=== PATIENT | female | born 1990 | race Caucasian/White ===

== ENCOUNTER 2020-04-16 20:48 | Emergency (ER) | payer OTHER, SELFPAY ==
--- NOTE | ~2020-04-16 | CT_ITS ---
EXAMINATION: CT soft tissue neck w con DATE: 04/17/2020 00:05 INDICATION: Largest created sore of the left posterior pharynx TECHNIQUE: Computed tomography (CT) of the neck was performed with 75 cc of Omnipaque 350 intravenous contrast. The dose-length product (DLP) was 520.09 mGy-cm. Automated exposure control and iterative reconstruction technique were employed. COMPARISON: None FINDINGS: There is mild enlargement of the palatine tonsils. No abscess or phlegmon is identified. Th ere is no lymphadenopathy. The vascular structures appear normal. IMPRESSION: 1. Mild enlargement of the palatine tonsils which could reflect tonsillitis. No abscess. Reviewed, dictated and finalized at location A.
--- NOTE | ~2020-04-16 | XR_ITS ---
XR chest 2V DATE: 04/16/2020 23:51 INDICATION: Chest pain TECHNIQUE: 2 views COMPARISON: None FINDINGS: Normal heart size. No hilar or mediastinal enlargement. No pulmonary infiltrate or consol idation, pulmonary vascular congestion or pleural effusion or pneumothorax. Mild thoracic scoliosis. IMPRESSION: No active cardiopulmonary disease Reviewed, dictated and finalized at location A.
--- NOTE | ~2020-04-16 | CT_ITS ---
EXAMINATION: CT brain wo con DATE: 04/17/2020 00:04 INDICATION: Headache TECHNIQUE: Computed tomography (CT) of the head was performed without intravenous contrast. The mA wa s adjusted according to patient size. Iterative reconstruction technique was employed. Exam dose: 60 5.33 mGy-cm total exam DLP. COMPARISON: 06/06/2011 CT brain FINDINGS: No intracranial mass lesion or hemorrhage or cerebrovascular accident is evident. No midlin e shift or mass effects. Normal ventricular size. No subdural or epidural hematoma. No orbital mass l esion. The mastoid air cells and included paranasal sinuses are unremarkable. No fracture or bone destruction of the cranial vault. IMPRESSION: No significant intracranial abnormality Reviewed, dictated and finalized at [facility]. Reviewed, dictated and finalized at location A.
[2020-04-16 20:50] VITALS: BP 133/73; PULSE 85; RESP 16; TEMP 36.3; O2SAT 99
--- NOTE | 2020-04-16 22:15 | ED.HA ---
HPI - Headache General Chief Complaint: Headache Stated Complaint: mouth infection Time Seen by Provider: 04/16/20 22:15 Source: patient Mode of arrival: ambulatory Limitations: no limitations History of Present Illness HPI Narrative: Patient is a 29-year-old female who presents for evaluation of intermittent headache pain. Patient has reported intermittent headache over the past several weeks. Occasionally awakens her from sleep. Described as a burning sensation over the right side of her face. No associated eye tearing or redness. No recent head trauma. Patient denies vision changes, nausea or vomiting. She does have some sensitivity to light. No difficulty with ambulation. Patient reports that she attributed her symptoms to a sore in the back of her mouth which is been present for 3 years. Patient states at times the sore can bleed and cause quite a bit of pain. She has never had a dentist or any physician look at this. Patient denies history of cancer. 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 Related Data Allergies Allergy/AdvReac Type Severity Reaction Status Date / Time No Known Allergies Allergy Verified 02/19/15 10:38 Review of Systems Review of Systems: Narrative: CONSTITUTIONAL: Denies fever, chills, or sweats. EYES: Denies visual changes, redness, or discharge. ENT: Denies rhinorrhea, congestion, sore throat, or otalgia. CARDIOVASCULAR: Reports intermittent chest pain over the past several weeks, denies palpitations or edema RESPIRATORY: Denies cough or dyspnea. GASTROINTESTINAL: Denies abdominal pain, nausea, vomiting, or diarrhea. GENITOURINARY: Denies dysuria or hematuria. SKIN: Denies rash or itching. MUSCULOSKELETAL: Denies back pain, joint pain, or myalgia. NEUROLOGIC: Reports headache without numbness or weakness PSYCHIATRIC: Reports history of anxiety PMFSH Past Medical History Medical History Abscess Surgical History Surgical History (Updated 04/16/20 @ 22:31 by Mary Turpin MD) H/O wisdom tooth extraction Social History Social History (Updated 04/16/20 @ 22:45 by Mary Turpin MD) Smoking status: Former smoker Tobacco type: cigarettes Alcohol intake: never Substance use: former Substance use type: opiates Living arrangements: with family Gender identity (if verbalized by the patient): Female Exam Narrative: Exam Narrative: GENERAL: Awake, alert, conversant HEAD: Normocephalic, atraumatic. EYES: PERRLA and EOMI. ENT: Nares clear, no rhinorrhea or epistaxis. Mucous membranes moist. NECK: Supple. CHEST: No respiratory distress, breathing even and non labored HEART: Regular rate, sinus rhythm ABDOMEN:Non distended, non tender EXTREMITIES: Normal range of motion. No edema. SKIN: Warm, dry, no rash. NEURO:No focal deficits. Alert and oriented x3. EOMs intact without nystagmus. No facial droop/asymmetry noted bilaterally. Grimace intact. Intact sensation in face. Hearing intact bilaterally. Shoulder shrug intact. Strength 5/5 bilateral upper extremities. Strength 5/5 bilateral lower extremities. Reflexes 2+ patellar. Ambulatory with a narrow base, steady gait. Course Vital Signs Vital signs: Vital Signs Temperature 36.3 C L 04/16/20 20:50 Pulse Rate 85 04/16/20 20:50 Respiratory Rate 16 04/16/20 20:50 Blood Pressure 133/73 04/16/20 20:50 Pulse Oximetry 99 04/16/20 20:50 Temperature 36.3 C L 04/16/20 20:50 Pulse Rate 90 04/16/20 23:11 Respiratory Rate 16 04/16/20 23:11 Blood Pressure 107/58 L 04/16/20 23:11 Pulse Oximetry 100 04/16/20 23:11 MDM - Headache MDM Narrative Medical decision making narrative: The patient was evaluated in the emergency department for headache. Patient's headache pain was not sudden or maximal in onset. Patient symptoms are actually quite chronic in nature. Her neurological exam is normal. On exam, patient is quite anxious. On e
--- NOTE | 2020-04-16 22:31 | ECG_ITS ---
Measurements Intervals [place] Rate: 68 P: 31 CA: 185 QRS: 50 QRSD: 91 T: 42 QT: 410 QTc: 437 Interpretive Statements SINUS RHYTHM WITH SINUS ARRHYTHMIA NORMAL ECG Electronically Signed On 04-17-2020 7:11:57 CDT by Sukhi Shirley D.O.
[2020-04-16] MEDS: diphenhydrAMINE HCl INJ 50 MG/ML VIAL 25 MG IV PUSH (22:57)
[2020-04-16] MEDS: METOCLOPRAMIDE HCL INJ 10 MG/2 ML VIAL IV PUSH (22:57)
[2020-04-16] MEDS: SODIUM CHLORIDE 0.9% IV 1,000 ML 999 ML IV CONT (22:57)
[2020-04-16 23:11] VITALS: BP 107/58; PULSE 90; RESP 16; O2SAT 100
[2020-04-16 23:21] LABS: Basophils Percent Auto 0.5 % (0.2-1.2); Eosinophils Absolute Auto 0.4 K/mm3 (0-0.3); Eosinophils Percent Auto 5.5 % (0-4.4); Hematocrit 45.7 % (37.0-47.0); Hemoglobin 15.2 g/dL (12.0-15.0); Immature Granulocyte Absolute 0.02 K/mm3 (0.00-0.031); Immature Granulocyte Percent A 0.3 % (0-0.5); Lymphocytes Absolute Auto 2.67 K/mm3 (0.9-3.2); Mean Corpuscular HGB Conc 33.3 g/dl (32-36); Mean Corpuscular Hemoglobin 28.1 pg (26-34); Mean Corpuscular Volume 84.6 fl (80-100); Mean Platelet Volume 9.9 fl (7.4-10.4); Monocytes Absolute Auto 0.6 K/mm3 (0.1-0.6); Monocytes Percent Auto 7.3 % (2.6-8.5); Neutrophils Absolute Auto 4.1 K/mm3 (1.3-6.7); Neutrophils Percent Auto 52.4 % (45.5-73.1); Platelet Count Result 376 k/mm3 (150-375); Red Cell Distribution Width 13.2 % (11.5-14.5); White Blood Count 7.9 K/mm3 (4.5-10.0)
[2020-04-16] MEDS: MAGNESIUM SULF 2 GM/WATER 50ML 2 GM/50 ML BAG IVPB (23:34)
[2020-04-16 23:36] LABS: INR 0.9
[2020-04-16 23:37] LABS: Partial Thromboplastin Time 29.2 SECONDS (22.3-36.8)
[2020-04-16 23:38] LABS: Blood Urea Nitrogen 4 mg/dL (7-17); Calcium 9.2 mg/dL (8.4-10.2); Carbon Dioxide 30 mmol/L (22-30); Chloride 99 mmol/L (98-107); Estimated Glomerular Filt Rate > 60; Glucose 88 mg/dL (65-105); Sodium 139 mmol/L (137-145)
[2020-04-16 23:50] LABS: Troponin I < 0.012 ng/mL (0.000-0.034)
[2020-04-17 01:06] VITALS: BP 110/62; PULSE 94; RESP 16; O2SAT 98
== END 2020-04-17 01:14 | disposition home or self-care (01) ==
PROVIDERS: Emergency Provider Emergency Medicine
DX: G44.209 Tension-type headache, unspecified, not intractable (principal); K13.70 Unspecified lesions of oral mucosa; Z87.891 Personal history of nicotine dependence
CPT/HCPCS: 36415; 70450; 70491; 71046; 80048; 81025; 84484; 85025; 85610; 85730; 93005; 96361; 96365; 96375; 99284; J0131; J1100; J1200; J2765; J3475; J7030; Q9967

== ENCOUNTER 2020-04-26 14:16 | Outpatient (CLI) | payer OTHER, SELFPAY ==
[2020-04-26 15:03] LABS: INR 0.9; Partial Thromboplastin Time 28.1 SECONDS (22.3-36.8); Prothrombin Time 11.9 Seconds (11.1-14.7)
[2020-04-26 15:04] LABS: Anion Gap 11.9 mmol/L (7-16); Blood Urea Nitrogen 9 mg/dL (7-17); Calcium 9.4 mg/dL (8.4-10.2); Carbon Dioxide 26 mmol/L (22-30); Chloride 102 mmol/L (98-107); Estimated Glomerular Filt Rate > 60; Glucose 93 mg/dL (65-105); Potassium 3.9 mmol/L (3.4-5.0); Sodium 136 mmol/L (137-145)
== END 2020-04-26 14:17 | disposition home or self-care (01) ==
LOC: ANHSURGERY 14:18
PROVIDERS: Anesthesiology; Visit Provider Otolaryngology
DX: Z01.818 Encounter for other preprocedural examination (principal); B19.20 Unspecified viral hepatitis C without hepatic coma
CPT/HCPCS: 36415; 80048; 85610; 85730

== ENCOUNTER 2020-05-03 01:09 | Outpatient (CLI) | payer OTHER, SELFPAY ==
[2020-05-03 18:36] LABS: SARS-CoV-2 RNA PCR Negative
== END 2020-05-03 01:10 | disposition home or self-care (01) ==
LOC: ANHCOVIDDT 01:09
PROVIDERS: Visit Provider Otolaryngology
DX: Z01.812 Encounter for preprocedural laboratory examination (principal); Z20.828 Contact with and (suspected) exposure to other viral communicable diseases
CPT/HCPCS: 87635; C9803; U0003

== ENCOUNTER 2020-05-05 01:44 | Day surgery (SDC) | payer OTHER, SELFPAY ==
[2020-04-22 14:02] VITALS: BMI 29.2
--- NOTE | 2020-05-03 08:12 | PM.HPGS ---
History of Present Illness History of Present Illness Consent: Risks, benefits, and alternatives have been discussed and questions answered. Patient agrees to proceed with procedure. Chief complaint: lesion left buccal mucosa Narrative: Evelyn Erazo is a 29 year old female she has had a several year history of a lesion left buccal mucosa with swelling of the left cheek appears to be an exophytic lesion plan is to biopsy PMFSH Surgical History Surgical History (Updated 04/16/20 @ 22:31 by Mary Turpin MD) H/O wisdom tooth extraction Social History Social History (Updated 04/16/20 @ 22:45 by Mary Turpin MD) Smoking packs per day: 1 Smoking cigarettes per day: 20.0 Years smoked: 15 Smoking pack-years: 15.00 Smoking status: Current every day smoker Tobacco type: cigarettes Alcohol intake: never Substance use: former Substance use type: opiates Gender identity (if verbalized by the patient): Female Spiritual care concerns: No Meds Home Medications and Allergies Home Medications Medication Instructions Recorded Confirmed Type No Home Medications 04/22/20 04/22/20 History Allergies Allergy/AdvReac Type Severity Reaction Status Date / Time No Known Allergies Allergy Verified 04/22/20 14:02 Assessment and Plan Additional Plan exophytic lesion in the left cheek behind the molars needs to be biopsied
[2020-05-05] VITALS (7 sets, daily range): BP systolic 93–118; BP diastolic 60–80; PULSE 88–107; RESP 16–20; TEMP 36.4–36.7; O2SAT 96–100
--- NOTE | 2020-05-05 05:58 | WPDHPUPDATE1 ---
History and Physical Update Update Date/Time: 05/05/20 05:58 History and Physical has been reviewed, including an updated exam of the patient. There are NO changes in the patient's condition. Risks, benefits, and alternatives have been discussed and questions answered. Patient agrees to proceed with procedure.
[2020-05-05] MEDS: LACTATED RINGERS 1,000 ML 30 ML IV CONT (07:52)
--- NOTE | 2020-05-05 08:01 | WPDANESEPPF ---
Anes - Initial Pre Proc Eval Procedure: Operation Date: 05/05/20 08:30 Proposed Procedures p Biopsy Lesion Left Buccal Mucosa - Jessee Perrin MD Date/Time: 05/05/20 08:01 Surgeon: Jessee Perrin MD Pre Op Diagnosis: lesion left buccal mucosa Patient Data Age: 29 Gender: F Height: 5 ft 4 in Weight: 77.11 kg Allergies Allergy/AdvReac Type Severity Reaction Status Date / Time No Known Allergies Allergy Verified 05/05/20 07:55 Home Medications Medication Instructions Recorded Confirmed Type No Home Medications 04/22/20 04/22/20 History Patient hx anesthesia problems: none Family hx anesthesia problems: none PMFSH Past Medical History Medical History (Updated 05/05/20 @ 07:58 by Farshad Ngo MD) Abscess GERD (gastroesophageal reflux disease) Surgical History Surgical History (Updated 04/16/20 @ 22:31 by Mary Turpin MD) H/O wisdom tooth extraction Social History Social History (Updated 04/16/20 @ 22:45 by Mary Turpin MD) Smoking packs per day: 1 Smoking cigarettes per day: 20.0 Years smoked: 15 Smoking pack-years: 15.00 Smoking status: Current every day smoker Tobacco type: cigarettes Alcohol intake: never Substance use: former Substance use type: opiates Gender identity (if verbalized by the patient): Female Spiritual care concerns: No Anes - Eval Final PreProcedure Day of Procedure 05/05/20 08:01 Patient weight: normal Heart: regular rate and rhythm Lungs: clear to auscultation Airway: Mallampati scale class II Neurological: alert and oriented Last oral intake: >/= 8 hours ASA classification: II Emergent: no Anesthetic plan: proceed Anesthesia type and monitoring: general ETT and standard monitoring Informed Consent: The patient's anesthetic plan and its attendant risks and benefits were discussed with the patient/family/POA. Questions were solicited and answers provided to the satisfaction of the patient/family/POA.
[2020-05-05] MEDS: LIDO 1%/EPINEPHRINE 1:100,000 20 ML VIAL INFILTRATE (08:18)
--- NOTE | 2020-05-05 08:38 | PM.PROC ---
Procedure Note - Detailed Date of procedure: 05/05/20 Pre-op diagnosis: lesion left buccal mucosa Exophytic lesion left buccal mucosa Post-op diagnosis: same Procedure performed: biopsy exophytic lesion left buccal mucosa Description of procedure: patient prednisone general anesthesia the area retracted a large exophytic lesion left buccal mucosa was identified and incisionally biopsied Anesthesia: GLMA Surgeon: Jessee Perrin MD Estimated blood loss (mL): 5 Drains: No Packing: No Pathology: yes Complications: No immediate complications Condition: stable Disposition: PACU
--- NOTE | 2020-05-05 09:04 | SUR.PHASEI ---
0849; PT INTO PACU PER STRETCHER. REACTS SLOWLY TO VERBAL STIMULI. 0851; PT AWAKE. CRYING HARD. PT COMFORTED. 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 PT SPIT OUT 4X4 GAUZE WITH SCANT AMT BLOODY DRAINAGE. 0905; PT REMAINS TEARFUL. COMFORTED.
--- NOTE | 2020-05-05 09:18 | SUR.PHASEI ---
PT STILL TEARFUL. NO LONGER CRYING. STATES MODERATE PAIN. FENTANYL GIVEN
--- NOTE | 2020-05-05 09:22 | SUR.PHASEI ---
PT STATES SHE IS READY TO GO TO OUTPT FOR A DRINK AND CRACKERS. PT CALM NOW.
== END 2020-05-05 10:20 | disposition home or self-care (01) ==
PROVIDERS: Visit Provider Otolaryngology
PROC: (CPT 40810; principal; 2020-05-05 08:30)
DX: C06.0 Malignant neoplasm of cheek mucosa (principal); B19.20 Unspecified viral hepatitis C without hepatic coma; F17.210 Nicotine dependence, cigarettes, uncomplicated
CPT/HCPCS: 40810; 88305; 88331; A9270; J1100; J2250; J2405; J2704; J3010; J7120

== ENCOUNTER 2022-03-29 20:31 | Emergency (ER) | payer OTHER, SELFPAY ==
[2022-03-29 20:33] VITALS: BP 127/66; PULSE 77; RESP 18; TEMP 36.4; O2SAT 97
--- NOTE | 2022-03-29 21:01 | ED.GENADULT ---
HPI - General Adult General Chief complaint: Unspecified Stated complaint: want e coli testing Time Seen by Provider: 03/29/22 20:40 History of Present Illness HPI narrative: Patient is a 31-year-old female who presents ER with concern for exposure to E. coli. Patient reports her father recently tested positive for an E. coli infection and Cryptosporidium in his stool. He had been having diarrhea. She reports she had visited a foreign country about 2 months ago. She is unsure how long he is been having the infection/diarrhea. She reports she last saw him 3 to 4 weeks ago. Did spend a week together camping. She did not notice and feeling ill at that time. Patient has had no nausea or vomiting or diarrhea. She has no abdominal pain or cramping. No fevers or chills. She reports her dad want her to get checked because he was told the health department may be following up with her. Related Data Home Medications Medication Instructions Recorded Confirmed No Home Medications 04/22/20 04/22/20 Allergies Allergy/AdvReac Type Severity Reaction Status Date / Time No Known Allergies Allergy Verified 03/29/22 21:00 Review of Systems Review of Systems: All systems reviewed & are unremarkable except as noted in HPI and below Constitutional: Constitutional: Denies chills, Denies fatigue and Denies fever(s) Gastrointestinal: Gastrointestinal: Denies abdominal pain, Denies GI cramping, Denies diarrhea, Denies nausea and Denies vomiting PMFSH Past Medical History Medical History (Updated 03/29/22 @ 21:07 by Robert Pineda MD) Abscess GERD (gastroesophageal reflux disease) Surgical History Surgical History H/O wisdom tooth extraction Social History Social History Smoking packs per day: 1 Smoking cigarettes per day: 20.0 Years smoked: 15 Smoking pack-years: 15.00 Smoking status: Current every day smoker Tobacco type: cigarettes Alcohol intake: never Substance use: former Substance use type: opiates Gender identity (if verbalized by the patient): Female Spiritual care concerns: No Exam Narrative: GENERAL: Well-appearing, well-nourished, and in no acute distress. HEAD: Normocephalic, atraumatic. ENT: Mucous membranes moist. CHEST: Clear to auscultation. No respiratory distress. HEART: Regular rate and rhythm. Normal peripheral pulses. ABDOMEN: Soft, nontender, nondistended. EXTREMITIES: Normal range of motion. No edema. NEURO: Alert and oriented x3. Course Course Emergency Course: Patient reports no infectious symptoms and abdomen soft nontender. Discharge home. Do not feel patient needs testing for infectious diarrhea as she is otherwise healthy and asymptomatic. Vital Signs Vital signs: Vital Signs Temperature 97.6 F 03/29/22 20:33 Pulse Rate 77 03/29/22 20:33 Respiratory Rate 18 03/29/22 20:33 Blood Pressure 127/66 03/29/22 20:33 Pulse Oximetry 97 03/29/22 20:33 Oxygen Delivery Room Air 03/29/22 20:33 Temperature 97.6 F 03/29/22 20:33 Pulse Rate 77 03/29/22 20:33 Respiratory Rate 18 03/29/22 20:33 Blood Pressure 127/66 03/29/22 20:33 Pulse Oximetry 97 03/29/22 20:33 Oxygen Delivery Room Air 03/29/22 20:33 Medical Decision Making Vital Signs Vital Signs: Vital Signs Temperature 97.6 F 03/29/22 20:33 Pulse Rate 77 03/29/22 20:33 Respiratory Rate 18 03/29/22 20:33 Blood Pressure 127/66 03/29/22 20:33 Pulse Oximetry 97 03/29/22 20:33 Oxygen Delivery Room Air 03/29/22 20:33 Temperature 97.6 F 03/29/22 20:33 Pulse Rate 77 03/29/22 20:33 Respiratory Rate 18 03/29/22 20:33 Blood Pressure 127/66 03/29/22 20:33 Pulse Oximetry 97 03/29/22 20:33 Oxygen Delivery Room Air 03/29/22 20:33 Discharge Plan Discharge Clinical Impression: Normal exam Patient Disposition: Home, S
== END 2022-03-29 21:27 | disposition home or self-care (01) ==
PROVIDERS: Emergency Provider Emergency Medicine
DX: Z71.1 Person with feared health complaint in whom no diagnosis is made (principal); F17.210 Nicotine dependence, cigarettes, uncomplicated
CPT/HCPCS: 99281

== ENCOUNTER 2022-09-12 13:08 | Emergency (ER) | payer OTHER, SELFPAY ==
--- NOTE | ~2022-09-12 | US_ITS ---
EXAMINATION: US OB <=14 wk fetus w TV DATE: 09/12/2022 16:37 INDICATION: Bleeding during first trimester TECHNIQUE: Real-time pelvic transabdominal and transvaginal ultrasound was performed. COMPARISON: None. FINDINGS: The uterus measures 6.9 x 3.8 x 4.2 cm. No intrauterine is identified. Endometri al thickness is 6 mm. The right ovary measures 3.8 x 2.1 x 3.3 cm. The left ovary measures 6.3 x 5.9 x 6.1 cm. There is normal vascular flow in the ovaries. There is cul-de-sac and bilateral adnexal flu id. There is a 6.5 x 5.1 x 5.9 cm complex cystic mass of the left adnexa with thin reticular internal echoes as well as a 1.7 cm solid nodular component. IMPRESSION: 1. of unknown location. Although no intrauterine gestational sac is seen, this may be due t o early gestation. Complex cystic mass of the left adnexa with thin reticular internal echoes as well as a solid nodular component. Finding could reflect a complex cyst however, failed ectopic is a consideration. If the patient is clinically stable, recommend followup with serial beta-hCG and ultrasound and OB evaluation. Reviewed, dictated and finalized at location F. [facility] IMPRESSION: 1. of unknown location. Although no intrauterine gestational sac is s een, this may be due to early gestation. Complex cystic mass of the left adnexa with thin reticular internal echoes as well as a solid nodular component. Find ing could reflect a complex cyst however, failed ectopic is a conside ration. If the patient is clinically stable, recommend followup with serial bet a-hCG and ultrasound and OB evaluation.
[2022-09-12 13:16] VITALS: BP 133/86; PULSE 87; RESP 18; TEMP 36.5; O2SAT 100
[2022-09-12 13:31] LABS: Appearance Urine Slightly Cloudy (Clear); Bilirubin Urine Negative (Negative); Color Urine Light Yellow (Yellow); Glucose Urine UA Negative (Negative); Ketones Urine Negative (Negative); Nitrate Urine Negative (Negative); Protein Urine Negative (Negative); Urobilinogen Urine 0.2 mg/dL (<2.0)
[2022-09-12 13:53] LABS: Mucus Urine Rare /lpf; Squamous Epithelial Cell Urine Few /hpf (Few)
[2022-09-12 13:57] LABS: Add Urine Microscopic? YES
[2022-09-12 13:58] LABS: Blood Urine 3+ (Negative); Leukocyte Esterase Ur Trace LEU/UL (Negative)
[2022-09-12 15:13] VITALS: BP 133/89; PULSE 81; RESP 15; O2SAT 99
[2022-09-12 15:47] LABS: Beta HCG Quantitative 44.82 mIU/ML
--- NOTE | 2022-09-12 16:01 | ED.GENADULT ---
HPI - General Adult General Chief complaint: Vaginal Bleeding Stated complaint: vaginal bleeding 2 weeks? ?? Time Seen by Provider: 09/12/22 13:55 Source: RN notes reviewed History of Present Illness HPI narrative: Patient presents emergency department from home for vaginal bleeding. Patient states that symptoms began approximately 2 weeks ago she states at that time the vaginal bleeding was heavier but is now turned into spotting states is associated with lower abdominal pain described as cramping. States that she took 2 home test were both positive and came to the ER for further evaluation she denies any fevers or chills nausea vomiting or any other symptoms does not currently have an [facility]. Patient states her last menstrual cycle was 2 weeks ago Related Data Home Medications Medication Instructions Recorded Confirmed No Home Medications 04/22/20 04/22/20 Allergies Allergy/AdvReac Type Severity Reaction Status Date / Time No Known Allergies Allergy Verified 09/12/22 13:11 Review of Systems Review of Systems: Gen.: Denies fevers or chills ENT: Denies congestion Respiratory: Denies shortness of breath or cough CV: Denies chest pain or palpitations GI: Reports lower abdominal cramping, denies nausea, emesis or diarrhea see HPI Musculoskeletal: Denies back pain or muscle pain Neuro: Denies numbness, tingling, weakness or focal weakness Skin: Denies rash Except as documented, all other systems reviewed and negative [facility] Past Medical History Medical History (Updated 09/12/22 @ 18:41 by Cortes Saleem DO) Abscess GERD (gastroesophageal reflux disease) Surgical History Surgical History H/O wisdom tooth extraction Social History Social History Smoking packs per day: 1 Smoking cigarettes per day: 20.0 Years smoked: 15 Smoking pack-years: 15.00 Smoking status: Current every day smoker Tobacco type: cigarettes Alcohol intake: never Substance use: former Substance use type: opiates Gender identity (if verbalized by the patient): Female Spiritual care concerns: No Exam Narrative: APPEARANCE: No acute distress, nontoxic, resting in bed EYES: EOMI HEENT: Normocephalic, atraumatic, OMM RESPIRATORY: No respiratory distress Clear to auscultation bilaterally with no rhonchi wheezing or rales. CARDIOVASCULAR: Regular rate and rhythm without murmurs rubs or gallops. ABDOMINAL: Soft, nontender, nondistended, no rebound or guarding : Normal external exam small mount of dark maroon blood in vaginal canal cervix is closed, no adnexal tenderness no cervical motion tenderness MUSCULOSKELETAl: Moves all extremities. No clubbing, cyanosis or edema. NEURO: Awake and alert. Following commands, speech normal, no focal deficits SKIN:: Warm, dry. No rashes lesions or abrasions PSYCHIATRIC: Normal affect/mood, Course Course Emergency Course: Discussed with Dr. Kathya Mathis presentation and work-up. This time please patient may be discharged with follow-up in his office on Saturday for repeat beta-hCG test and further evaluation Discussed with patient results of workup and diagnosis. Discussed need for follow-up with primary care, proper use of medication, and reasons to return to the emergency department. Patient understands and agrees to current treatment plan discussed with patient risk of threatened miscarriage versus ectopic need for follow-up with [facility] for repeat beta-hCG and further evaluation Vital Signs Vital signs: Vital Signs Temperature 97.7 F 09/12/22 13:16 Pulse Rate 87 09/12/22 13:16 Respiratory Rate 18 09/12/22 13:16 Blood Pressure 133/86 09/12/22 13:16 Pulse Oximetry 100 09/12/22 13:16 Oxygen Delivery Room Air 09/12/22 13:16 Temperature 97.7 F 09/12/22 13:16 Pulse Rate 81 09/12/22 15:13 Respiratory Rate 15 09/12
[2022-09-12 17:49] LABS: Basophils Percent Auto 0.4 % (0.2-1.2); Eosinophils Absolute Auto 0.2 K/mm3 (0-0.3); Eosinophils Percent Auto 1.9 % (0-4.4); Hematocrit 46.2 % (37.0-47.0); Hemoglobin 15.8 g/dL (12.0-15.0); Immature Granulocyte Absolute 0.01 K/mm3 (0.00-0.031); Immature Granulocyte Percent A 0.1 % (0-0.5); Lymphocytes Percent Auto 22.4 % (18.3-44.2); Mean Corpuscular HGB Conc 34.2 g/dl (32-36); Mean Corpuscular Hemoglobin 29.5 pg (26-34); Mean Corpuscular Volume 86.4 fl (80-100); Mean Platelet Volume 9.3 fl (7.4-10.4); Monocytes Absolute Auto 0.6 K/mm3 (0.1-0.6); Monocytes Percent Auto 6.8 % (2.6-8.5); Neutrophils Absolute Auto 5.5 K/mm3 (1.3-6.7); Neutrophils Percent Auto 68.4 % (45.5-73.1); Platelet Count Result 313 k/mm3 (150-375); Red Blood Count 5.35 M/mm3 (4.2-5.4); Red Cell Distribution Width 11.6 % (11.5-14.5)
[2022-09-12 18:15] VITALS: BP 112/84; PULSE 74; RESP 14; O2SAT 99
[2022-09-12] MEDS: NITROFURANTOIN MONOHYD MACROCR 100 MG CAP PO (18:56)
== END 2022-09-12 18:59 | disposition home or self-care (01) ==
PROVIDERS: Emergency Provider Emergency Medicine
DX: O20.0 Threatened abortion (principal); O99.611 Diseases of the digestive system complicating pregnancy, first trimester; K21.9 Gastro-esophageal reflux disease without esophagitis; O99.331 Smoking (tobacco) complicating pregnancy, first trimester; F17.210 Nicotine dependence, cigarettes, uncomplicated; Z3A.01 Less than 8 weeks gestation of pregnancy
CPT/HCPCS: 36415; 76801; 76817; 81001; 81025; 84702; 85025; 85461; 86850; 86900; 86901; 87077; 87086; 87088; 99284; A9270

== ENCOUNTER 2023-02-18 15:23 | Emergency (ER) | payer OTHER, SELFPAY ==
[2023-02-18] VITALS (16 sets, daily range): BP systolic 95–117; BP diastolic 50–83; PULSE 53–82; RESP 15–16; TEMP 36.8; O2SAT 91–100
--- NOTE | ~2023-02-18 | CT_ITS ---
EXAMINATION: CT abdomen pelvis w con DATE: 02/18/2023 17:01 INDICATION: Lower abdominal pain TECHNIQUE: Computed tomography (CT) of the abdomen and pelvis was performed with 100 mL Omnipaque-350 intravenous contrast. Automated exposure control and iterative reconstruction technique were employe d. The dose-length product was 792.04 mGy-cm. COMPARISON: None FINDINGS: Mild dependent reticular and groundglass opacities in the bilateral lower lobes and favor atelectasis over mild pulmonary edema. Heart size is normal. No pericardial or pleural effusion. Liver, gallblad jamie, spleen, pancreas, bilateral adrenal glands and left kidney are normal. Small region of cortical scarring at the lower pole of the right kidney likely sequela of prior infection or infarction. Bowel s including the appendix are normal. 5.5 x 4.8 cm predominantly fat attenuation left adnexal mass wit h small amount of peripheral rim calcific location and minimal wispy internal soft tissue density con sistent with an ovarian dermoid. A few small cystic right ovarian lesions the largest measuring 2.1 c m with thin peripheral enhancing wall consistent with a likely corpus luteum cyst. Bladder and anteve rted uterus are unremarkable. No free intraperitoneal gas or fluid. No pathologically enlarged abdomi nal or pelvic lymphadenopathy. Lumbarized S1 segment. IMPRESSION: 1. 5.5 cm left ovarian dermoid and 2.1 cm likely right corpus luteum cyst. Reviewed, dictated and finalized at location A.
--- NOTE | ~2023-02-18 | US_ITS ---
EXAMINATION: US pelvic complete DATE: 02/18/2023 19:09 INDICATION: Abnormal CT with bilateral lower quadrant pain TECHNIQUE: Multiple transabdominal and endovaginal sonographic images of the pelvis were obtained. COMPARISON: None. FINDINGS: The uterus measures 8.4 x 4.8 x 3.9 cm. The endometrial complex measures 6 mm in thickness. The righ t ovary measures 4.3 x 2.6 x 2.8 cm and contains a 1.6 cm anechoic cyst/follicle. The left ovary allen ures 5.5 x 5.4 x 5.3 cm and contains a 4.7 cm mixed anechoic and hypoechoic mass corresponding to the previous noted left ovarian dermoid. Normal arterial and venous waveforms identified in both ovaries on color Doppler. There is no free fluid in the pelvis. IMPRESSION: 1. 4.7 cm complex left ovarian mass corresponding to an ovarian dermoid on prior CT and 1.6 similar a nechoic cyst/follicle at the right ovary. Normal vascular flow with arterial and venous waveforms in both ovaries. Reviewed, dictated and finalized at location A. IMPRESSION: 1. 4.7 cm complex left ovarian mass corresponding to an ovarian dermoid on prio r CT and 1.6 similar anechoic cyst/follicle at the right ovary. Normal vascular flow with arterial and venous waveforms in both ovaries.
[2023-02-18 15:58] LABS: Add Urine Microscopic? YES; Appearance Urine Clear (Clear); Bacteria Urine Rare /hpf; Bilirubin Urine Negative (Negative); Blood Urine Negative (Negative); Color Urine Yellow (Yellow); Glucose Urine UA Negative (Negative); Ketones Urine Negative (Negative); Leukocyte Esterase Ur 1+ LEU/UL (Negative); Need Manual Microscopic Reviewed; Nitrate Urine Negative (Negative); Non Pathogenic Casts 0-2; Protein Urine Negative (Negative); Specific Grav Ur 1.018 (1.001-1.035); Squamous Epithelial Cell Urine Moderate /hpf (Few); WBC Urine 0-5 /hpf
[2023-02-18 16:08] LABS: Basophils Percent Auto 0.4 % (0.2-1.2); Eosinophils Absolute Auto 0.1 K/mm3 (0-0.3); Eosinophils Percent Auto 1.1 % (0-4.4); Hematocrit 43.9 % (37.0-47.0); Hemoglobin 15.4 g/dL (12.0-15.0); Immature Granulocyte Absolute 0.03 K/mm3 (0.00-0.031); Immature Granulocyte Percent A 0.4 % (0-0.5); Lymphocytes Absolute Auto 1.45 K/mm3 (0.9-3.2); Lymphocytes Percent Auto 17.6 % (18.3-44.2); Mean Corpuscular HGB Conc 35.1 g/dl (32-36); Mean Corpuscular Volume 85.4 fl (80-100); Mean Platelet Volume 9.6 fl (7.4-10.4); Monocytes Absolute Auto 0.6 K/mm3 (0.1-0.6); Monocytes Percent Auto 7.1 % (2.6-8.5); Neutrophils Absolute Auto 6.1 K/mm3 (1.3-6.7); Neutrophils Percent Auto 73.4 % (45.5-73.1); Platelet Count Result 272 k/mm3 (150-375); Red Blood Count 5.14 M/mm3 (4.2-5.4); Red Cell Distribution Width 11.8 % (11.5-14.5); White Blood Count 8.3 K/mm3 (4.5-10.0)
[2023-02-18 16:18] LABS: Alanine Aminotransferase 48 U/L (6-35); Albumin Level 4.3 g/dL (3.5-5.1); Alkaline Phosphatase 53 U/L (38-126); Anion Gap 2 mmol/L (8-16); Aspartate Amino Transferase 46 U/L (14-36); Bilirubin,Total 0.6 mg/dL (0.2-1.3); Blood Urea Nitrogen 10 mg/dL (7-17); Calcium 8.7 mg/dL (8.4-10.2); Carbon Dioxide 31 mmol/L (22-30); Chloride 104 mmol/L (98-107); Estimated CRCL calculation 78 ml/min; Estimated Glomerular Filt Rate > 60; Glucose 81 mg/dL (65-110); Lipase 48 U/L (23-300); Potassium 4.1 mmol/L (3.4-5.0); Sodium 137 mmol/L (137-145)
--- NOTE | 2023-02-18 18:46 | ED.ABDPAIN ---
HPI - Abdominal Pain General Chief Complaint: Abdominal Pain Stated Complaint: abdominal and flank pain Time Seen by Provider: 02/18/23 15:32 History of Present Illness HPI narrative: Patient is a 32-year-old female who presents ER with reports of lower abdominal pain. Intermittent over the last week but worse over the last day now radiating into her back. Has known ovarian cyst but unsure what size. No urinary frequency urgency or dysuria. No vaginal bleeding or vaginal discharge. No history of kidney stones. No alleviating factors. Symptoms are worse with increased pressure on the abdomen. Related Data Allergies Allergy/AdvReac Type Severity Reaction Status Date / Time No Known Allergies Allergy Verified 02/18/23 15:24 Review of Systems Review of Systems: All systems reviewed & are unremarkable except as noted in HPI and below Constitutional: Constitutional: Denies chills, Denies fatigue and Denies fever(s) ENT: Denies nasal congestion and Denies sore throat Cardiovascular: Cardiovascular: Denies chest pain, Denies rapid heart rate and Denies radiating jaw, neck or arm pain Respiratory: Respiratory: Denies cough and Denies dyspnea Gastrointestinal: Gastrointestinal: Reports abdominal pain, Denies constipation, Denies diarrhea, Denies nausea and Denies vomiting Genitourinary: Genitourinary: Denies nocturia, Denies dysuria, Reports pelvic pain and Denies flank pain PMFSH Past Medical History Medical History (Updated 02/18/23 @ 19:38 by Robert Pineda MD) Abscess GERD (gastroesophageal reflux disease) Surgical History Surgical History H/O wisdom tooth extraction Social History Social History Smoking packs per day: 1 Smoking cigarettes per day: 20.0 Years smoked: 15 Smoking pack-years: 15.00 Smoking status: Current every day smoker Tobacco type: cigarettes Alcohol intake: never Substance use: former Substance use type: opiates Living arrangements: with family Gender identity (if verbalized by the patient): Female Spiritual care concerns: No Exam Narrative: GENERAL: Well-appearing, well-nourished, and in no acute distress. HEAD: Normocephalic, atraumatic. EYES: PERRL and EOMI. ENT: Mucous membranes moist. CHEST: Clear to auscultation. No respiratory distress. HEART: Regular rate and rhythm. Normal peripheral pulses. ABDOMEN: Soft, bilateral lower quadrant discomfort near the suprapubic region without guarding, nondistended. EXTREMITIES: Normal range of motion. No edema. SKIN: Warm, dry, no rash. Skin graft left forearm NEURO: Alert and oriented x3. PSYCH: Normal mood and affect. Course Course Emergency Course: Patient resting comfortably. Informed of results. Discussed need to follow-up with gynecology and we will provide her with a phone number. Vital Signs Vital signs: Vital Signs Temperature 98.3 F 02/18/23 15:24 Pulse Rate 82 02/18/23 15:24 Respiratory Rate 16 02/18/23 15:24 Blood Pressure 117/83 02/18/23 15:24 Pulse Oximetry 100 02/18/23 15:24 Oxygen Delivery Room Air 02/18/23 15:24 Temperature 98.3 F 02/18/23 15:24 Pulse Rate 65 02/18/23 19:42 Respiratory Rate 15 02/18/23 19:42 Blood Pressure 102/78 02/18/23 19:42 Pulse Oximetry 98 02/18/23 19:42 Oxygen Delivery Room Air 02/18/23 15:24 MDM - Abdominal Pain Lab Data 02/18/23 16:03 02/18/23 16:03 Labs: Lab Results 02/18/23 02/18/23 Range/Units 15:42 16:03 WBC 8.3 (4.5-10.0) K/mm3 RBC 5.14 (4.2-5.4) M/mm3 Hgb 15.4 H (12.0-15.0) g/dL Hct 43.9 (37.0-47.0) % MCV 85.4 (80-100) fl MCH 30.0 (26-34) pg MCHC 35.1 (32-36) g/dl RDW 11.8 (11.5-14.5) % Plt Count 272 (150-375) k/mm3 MPV 9.6 (7.4-10.4) fl Immature Gran % (Auto) 0.4 (0-0.5) % Neut % (Auto) 73.4 H (45.5
== END 2023-02-18 19:43 | disposition home or self-care (01) ==
PROVIDERS: Emergency Provider Emergency Medicine
DX: D27.1 Benign neoplasm of left ovary (principal); K21.9 Gastro-esophageal reflux disease without esophagitis; F17.210 Nicotine dependence, cigarettes, uncomplicated
CPT/HCPCS: 36415; 74177; 76856; 80053; 81001; 81025; 83690; 85025; 99284; Q9967

== ENCOUNTER 2023-03-22 00:52 | Day surgery (SDC) | payer OTHER, SELFPAY ==
--- NOTE | 2023-02-21 11:55 | PC.NURSE ---
Addendum entered by Janell Villatoro RN 03/19/23 12:41: PT TO ARRIVE AT 0630 ON 03/22/23 FOR SURGERY AT 0830. Addendum entered by Janell Villatoro RN 03/01/23 10:52: PT TO ARRIVE AT 0715 ON 03/08/23 FOR SURGERY AT 0915. Original Note: Report to the Outpatient Waiting Room, entrance under the green pavilion located off [facility], at time _0800 on date _02/22/23 . Planned Procedure Time: __1000 . Time changes happen often and if your time is changed the preop area will call you the afternoon before. - You and your visitor will be asked to self-screen and do not enter if you have any COVID symptoms. - A mask is optional within the hospital at this time. Patients may have clear liquids (water, carbonated beverages, clear teas, apple juice) until 3 hours prior to surgery with a maximum of 20 ounces. - No food from midnight until time of surgery - Infants may have breast milk until 4 hours before surgery, infant formula 6 hours prior to surgery. - Children will be allowed to drink immediately following surgery. If applicable, please bring a bottle or sippy cup to assist with drinking. Juice, water, soda, and popsicles are readily available. For infants on formula, please bring formula the day of surgery. Pacifiers are allowed. Take the following medications with a SIP of water the morning of surgery: NONE DO NOT STOP ANY OF YOUR OTHER PRESCRIPTION MEDICATIONS PRIOR TO SURGERY ?EXCEPT THE FOLLOWING Medications to discontinue per physician NONE Date to take last dose Please no make-up, nail mongolian, hairspray, perfume, deodorant, or body powder the day of surgery. No jewelry (including any body piercings) or valuables the day of surgery, leave them at home. Please take a shower or bath the night before, or the morning of, surgery with an antibacterial soap. Wear comfortable, loose fitting clothing. Children are encouraged to wear pajamas. - Jewelry must be removed prior to entering the operating room. Rings and piercings that are not removed may be cut off. - The hospital will not accept responsibility for valuables. - Please leave all valuables, including medications, at home the day of surgery. If you are going home after surgery, a licensed equipment driver must drive you home. - NO public transportation without another adult if you receive anesthesia. - We recommend that an adult stay with you for 24 hours following discharge. - We also recommend that you do not drive, make important decision, drink alcoholic beverages, or take any drugs that were not prescribed by your health care provider for at least 24 hours after your discharge time. For Pediatric surgeries, we recommend two adults accompany the child home. Follow any additional instructions given to you from your surgeon. If you or anyone in your household have experienced Covid symptoms in the past week, please notify your surgeon or the nurse liaison at the phone number below for possible testing. Telephone instructions given to __PATIENT and asked if any additional questions and then verbalized understanding. Patient advised to call surgeon office or pre surgery nurse liaison [phone] if any additional questions.
[2023-02-21 11:58] VITALS: BMI 29.2
--- NOTE | 2023-03-01 10:51 | PC.NURSE ---
Addendum entered by Janell Villatoro RN 03/19/23 12:41: Pt states no changes, instructions reviewed. Pt denies further questions at this time. Original Note: Pt states no changes in medications or health history since initial interview. Pre-op instructions reviewed with pt. Pt denies further questions at this time.
--- NOTE | 2023-03-07 06:50 | HP_ITS ---
DATE OF SERVICE: ANTICIPATED DATE OF ADMISSION: 03/08/2023. REASON FOR ADMISSION: This 32-year-old, 1, para 0, is admitted for laparoscopic left ovarian cystectomy secondary to left ovarian cyst and pelvic pain. The patient followed up from the ER at [facility], at which time she has an ovarian cyst on both ovaries, however the left has a 5.5 cm left ovarian dermoid. Risks and benefits were reviewed including, but not exclusive of, , aspiration, pneumonia, bleeding, transfusion, infection, perforation, injury to bowel, bladder, ureters, or other internal organs with the need for open laparotomy. She had all questions answered and asked to proceed. PAST MEDICAL HISTORY: Otherwise negative. PAST OB HISTORY: Miscarriage x1. ALLERGIES: NONE. SOCIAL HISTORY: She is . She is a smoker. She denies drug or alcohol use. FAMILY HISTORY: Noncontributory. REVIEW OF SYSTEMS: Negative. PHYSICAL EXAMINATION: VITAL SIGNS: She is 197 pounds. HEENT: Within normal limits. NECK: Supple. CHEST: Clear. HEART: Regular. ABDOMEN: Soft, nontender, nondistended. No hepatosplenomegaly appreciated. EXTREMITIES: No Homans sign. GENITOURINARY: Cervix is closed and parous. Uterus is normal in size. Adnexal exam shows this left fullness. Anus, perineum show no lesions. IMPRESSION: Complex left ovarian cyst. PLAN: Laparoscopic left ovarian cystectomy, possible left oophorectomy. Risks and benefits were all reviewed. Emelyn I MT: Magda
--- NOTE | 2023-03-20 16:12 | P.HP_ITS ---
H&P: HPI History of Present Illness Date/Time: 03/20/23 16:12 Chief Complaint: Severe pelvic pain with large left cyst suspected dermoid cyst Narrative: This is a 32 para 0 is admitted for laparoscopy and left ovarian cystectomy secondary with suspected to be a cyst she seen in the February [address] scan showed 5.5cm left dermoid cyst. Right side had a small ovarian cyst as well. Cultures were negative and ultrasound noted the cyst as well. She will undergo laparoscopy with left cystectomy possible left salpingo-oophorectomy risks and benefits were reviewed with the Doppler, aspi ration pneumonia, bleeding, transfusion, perforation injury to bowel, bladder, ureters, or other internal organs with need for open laparotomy. She received the ACOG handout entitled laparoscopy. She had all questions answered. She asked to proceed PMFSH Past Medical History Medical History (Updated 03/20/23 @ 16:15 by Geovani Mathis MD) Abscess GERD (gastroesophageal reflux disease) Surgical History Surgical History H/O wisdom tooth extraction Social History Social History Smoking packs per day: 1 Smoking cigarettes per day: 20.0 Years smoked: 15 Smoking pack-years: 15.00 Smoking status: Former smoker Tobacco type: cigarettes and e-cigarettes/vaping Smoking end date: 09/23/21 Additional smoking assessment comments: CURRENTLY VAPS Alcohol intake: never Substance use: former Substance use type: opiates Last use: 2018 Living arrangements: with family Gender identity (if verbalized by the patient): Female Spiritual care concerns: No Meds Home Medications and Allergies Home Medications Medication Instructions Recorded Confirmed Type No Home Medications 02/21/23 03/19/23 History Allergies Allergy/AdvReac Type Severity Reaction Status Date / Time No Known Allergies Allergy Verified 03/19/23 12:41 Exam Const: General: cooperative, healthy appearing, comfortable and average body habitus Orientation/consciousness: oriented to person, oriented to place and oriented to time HENMT: Head: normal to inspection Resp: Effort & Inspection: normal respiratory effort Cardio: Rate: regular rate Rhythm: regular rhythm Heart sounds: S1 normal heart sound present and S2 normal heart sound present GI: Inspection: normal to inspection : External Female Exam: normal external appearance Speculum Exam - Vagina: normal appearance of the vagina Speculum Exam - Cervix: normal appearance of the cervix Bimanual exam- vagina & uterus: uterine size normal Bimanual Exam- Adnexa, other: tender on the left and Adnexal mass present on the left Assessment and Plan Assessment and plan (1) Left ovarian cyst: Code(s): N83.202 - Unspecified ovarian cyst, left side Status: Acute (2) Pelvic pain: Code(s): R10.2 - Pelvic and perineal pain Status: Acute Plan Laparoscopy with left cystectomy and possible left salpingo-oophorectomy
--- NOTE | 2023-03-21 13:27 | P.PNAN_ITS ---
Anes - Initial Pre Proc Eval Procedure: Operation Date: 03/22/23 07:30 Proposed Procedures p Laparoscopic Left Ovarian Cystectomy - Geovani Mathis MD Date/Time: 03/21/23 13:27 Surgeon: Geovani Mathis MD Pre Op Diagnosis: Severe Pelvic Pain, Left Ovarian Cyst Patient Data Age: 32 Gender: F Height: 1.63 m Weight: 77.2 kg Allergies Allergy/AdvReac Type Severity Reaction Status Date / Time No Known Allergies Allergy Verified 03/19/23 12:41 Home Medications Medication Instructions Recorded Confirmed Type No Home Medications 02/21/23 03/19/23 History Patient hx anesthesia problems: none Family hx anesthesia problems: none Results Review: All pre-operative results and documents have been reviewed as part of the pre- operative evaluation. [facility] Past Medical History Medical History (Updated 03/21/23 @ 13:28 by Wu Wade DO) Abscess GERD (gastroesophageal reflux disease) Hepatitis C Surgical History Surgical History H/O wisdom tooth extraction Social History Social History Smoking packs per day: 1 Smoking cigarettes per day: 20.0 Years smoked: 15 Smoking pack-years: 15.00 Smoking status: Former smoker Tobacco type: cigarettes and e-cigarettes/vaping Smoking end date: 09/23/21 Additional smoking assessment comments: CURRENTLY VAPS Alcohol intake: never Substance use: former Substance use type: opiates Last use: 2019 Living arrangements: with family Gender identity (if verbalized by the patient): Female Spiritual care concerns: No Anes - Eval Final PreProcedure Day of Procedure 03/21/23 13:27 Patient weight: overweight Heart: regular rate and rhythm Lungs: clear to auscultation Airway: Mallampati scale class II and special considerations (edentulous) Neurological: alert and oriented Last oral intake: >/= 8 hours ASA classification: III Emergent: no Anesthetic plan: proceed Anesthesia type and monitoring: general GIVS and standard monitoring Results Review: All pre-operative results and documents have been reviewed as part of the pre- operative evaluation. Informed Consent: The patient's anesthetic plan and its attendant risks and benefits were discussed with the patient/family/POA. Questions were solicited and answers provided to the satisfaction of the patient/family/POA.
[2023-03-22] VITALS (17 sets, daily range): BP systolic 104–127; BP diastolic 55–91; PULSE 50–109; RESP 10–18; TEMP 36.1–36.3; O2SAT 96–100
--- NOTE | 2023-03-22 07:15 | WPDHPUPDATE1 ---
History and Physical Update Update Date/Time: 03/22/23 07:15 History and Physical has been reviewed, including an updated exam of the patient. There are NO changes in the patient's condition. Risks, benefits, and alternatives have been discussed and questions answered. Patient agrees to proceed with procedure.
[2023-03-22] MEDS: ACETAMINOPHEN 500 MG TABLET 1000 MG PO (07:20)
[2023-03-22] MEDS: LACTATED RINGERS 1,000 ML 30 ML IV CONT ×2 (07:25→09:20)
[2023-03-22] MEDS: KETOROLAC 15 MG/ML VIAL (*BKC) IV PUSH (07:25)
[2023-03-22 07:39] LABS: INR 0.9; Prothrombin Time 12.9 Seconds (11.1-14.7)
[2023-03-22 07:40] LABS: Partial Thromboplastin Time 29.3 SECONDS (22.3-36.8)
--- NOTE | 2023-03-22 08:23 | W.PM.PROC2 ---
Procedure Note - Detailed Date of Procedure 03/22/23 Pre-op Diagnosis Severe Pelvic Pain, Left Ovarian Cyst Post-op Diagnosis Other (Left dermoid cyst) Procedure Performed laparoscopic left cystectomy Surgeon Geovani Mathis MD Anesthesia General Indications the 32 year female with a suspected dermoid cyst left Findings large left dermoid cyst encompassing the majority of the ovary Description of Procedure the patient was prepped draped in normal sterile fashion placed in dorsal lithotomy position. Under excellent general pregnancies was placed posterior fornix vagina. Anterior lip of the cervix grasped with single-tooth tenaculum. Walker's cannula inserted the cervix and attached to the single-tooth to be used later for uterine manipulation. The bladder emptied of clear urine the weighted speculum was removed. Gloves were changed. The infraumbilical incision made the Veress needle passed in the abdomen. Abdomen filled with CO2 gas 15 was mercury. The 5mm trocar advanced under direct visualization assuring no injury. Patient placed in Trendelenburg and a suprapubic incision made. The 5mm trocar advanced under direct visualization assuring injury. The large ovarian cyst was noted and was noted to be encased in omentum. The left lower quadrant incision made the 10mm trocar advanced under direct visualization assuring no injury. Using the LigaSure these adhesions were sharply dissected and relieved around the ovary and tube. The using the LigaSure the ovarian cyst was shelled out of the portion of the ovary conserving the left fallopian tube. This was then placed in an Endo-Catch and removed through the left lower quadrant incision. Hemostasis was assured and vigorous irrigation undertaken to clear. The lower sites removed. The gas removed from the abdomen. The upper site removed the incisions closed with 4 Monocryl glue. Instruments removed from vagina patient was recovered in satisfactory condition. All sponge, needle, instrument counts were correct. There were no immediate complications Estimated Blood Loss 25 Drains No Packing No Pathology Yes Complications No immediate complications Condition Stable Disposition PACU
[2023-03-22] MEDS: fentaNYL CITRATE INJ (*CRX) 100 MCG/2 ML VIAL 25 MCG IV PUSH ×8 (09:00→09:35)
--- NOTE | 2023-03-22 09:21 | ECG_ITS ---
Measurements Intervals [place] Rate: 58 P: 26 KS: 291 QRS: 45 QRSD: 89 T: 81 QT: 447 QTc: 440 Interpretive Statements SINUS BRADYCARDIA WITH SECOND-DEGREE AV BLOCK MOBITZ TYPE [address] & T-WAVE ABNORMALITY ABNORMAL ECG COMPARED TO ECG 04/16/2020 22:43:25 T-WAVE ABNORMALITY NOW PRESENT Electronically Signed On 03-22-2023 17:12:31 CDT by Randell Paredes M.D.
--- NOTE | 2023-03-22 09:33 | SUR.PHASEI ---
09 dr. kessler called and aware of pt's irregular EKG reading. 09 dr. kessler at bedside, EKG ordered 932 - EKG results obtained
--- NOTE | 2023-03-22 09:45 | SUR.PHASEI ---
0937 - dr. perez at bedside reviewing EKG.
--- NOTE | 2023-03-22 09:50 | SUR.PHASEI ---
0949 - dr. he called in regards to EKG reading 0951 - dr. kessler aware of reading.
--- NOTE | 2023-03-22 09:57 | SUR.PHASEI ---
0956 - dr. kessler requested order for cardiology consult.
--- NOTE | 2023-03-22 10:09 | SUR.PHASEI ---
1006 - . Sondra Fuller called in regards to cardiology consult. stated that she will see patient in PACU within the next 2 hours. will continue to monitor.
--- NOTE | 2023-03-22 10:24 | SUR.PHASEI ---
1024 - dr. diane diaz aware of pt's cardiology consult and will updated him in regards to care moving forward
[2023-03-22] MEDS: ONDANSETRON INJ 4 MG/2 ML VIAL IV PUSH (10:49)
[2023-03-22] MEDS: HYDROmorphone HCL INJ (*CRX) 1 MG/ML SYR 0.5 MG IV PUSH ×4 (10:55→12:19)
[2023-03-22] MEDS: oxyCODONE HCL (*CRX) 5 MG TAB IR PO (13:37)
--- NOTE | 2023-03-22 13:39 | PM.CNCAR ---
Assessment and Plan Assessment and plan (1) Second degree AV block, Mobitz type I: Code(s): I44.1 - Atrioventricular block, second degree Status: Acute Plan This is a 32-year-old woman who is fresh postop surgery to remove ovarian cyst she has been seen on telemetry and 12 lead ECG to have Mobitz type 1 second-degree AV block. She is taking no medications that would affect AV node physiology. This was discussed in detail with the patient and her family who are in the room. She does not require any further cardiac evaluation because of this and she does not have to be kept into the hospital overnight. I believe the plan was to release her to home following recovery from her ovarian cyst operation. Her primary care physician needs to be made aware that she does have second-degree AV block Mobitz type 1 so that medications that would slow AV node conduction are not prescribed. Thank you for asking me to see this nice lady in consultation Randell Paredes MD [facility] History of Present Illness History of Present Illness Consult date/time: 03/22/23 13:39 Reason For Visit: Severe Pelvic Pain, Left Ovarian Cyst Narrative: This is a 32-year-old woman I am seeing in the postanesthesia care unit following surgery for removal of ovarian cyst. I am seeing her because of an abnormal electrocardiogram. There was concern about her AV node physiology and for this reason I have been asked to see her in consultation. She has no cardiovascular complaints and reports no history of cardiovascular problems. She has never had a syncopal episode she denies any symptoms of chest pain exertional dyspnea orthopnea PND or edema. The patient while in surgery was noted to have some AV node dysfunction a 12 lead electrocardiogram was performed following surgery which shows sinus rhythm with first-degree AV block Mobitz type 1. A previous electrocardiogram in the record from 2019 demonstrated normal AV node physiology. The patient does not take any medications that would affect AV node physiology and other than postoperative incisional pain does not have any active complaints. Review of Systems Constitutional: Constitutional: Reports fatigue Eyes: Eyes: Reports no additional eye complaints ENT: Reports system reviewed and no additional complaints, except as documented Cardiovascular: Cardiovascular: Reports no additional cardiovascular complaints Respiratory: Respiratory: Reports no additional respiratory complaints Gastrointestinal: Gastrointestinal: Reports no additional gastrointestinal complaints Genitourinary: Genitourinary: Reports as per HPI and Reports pelvic pain Musculoskeletal: Musculoskeletal: Reports no additional musculoskeletal complaints Integumentary/Breasts: Skin/Breast: Reports system reviewed and no additional complaints, except as docu Neurologic: Reports system reviewed and no additional complaints, except as documented Endocrine: Endocrine: Reports no additional endocrine complaints Hematologic/Lymphatic: Hematologic/Lymphatic: Reports no additional hematologic/lymphatic complaints Allergic/Immunologic: Allergic/Immunologic: Reports no additional allergic/immunologic complaints PMFSH Past Medical History Medical History (Updated 03/22/23 @ 13:44 by Randell Paredes MD) Abscess GERD (gastroesophageal reflux disease) Hepatitis C Surgical History Surgical History H/O wisdom tooth extraction Social History Social History Smoking packs per day: 1 Smoking cigarettes per day: 20.0 Years smoked: 15 Smoking pack-years: 15.00 Smoking status: Former smoker Tobacco type: cigarettes and e-cigarettes/vaping Smoking end date: 09/23/21 Additional smoking assessment comments: CURRENTLY VAPS Alcohol intake: never Substance use: former Substance use type: opiates Last use: 20
== END 2023-03-22 13:46 | disposition home or self-care (01) ==
PROVIDERS: Visit Provider Obstetrics & Gynecology
PROC: (CPT 49320; principal; 2023-03-22 07:30)
DX: D27.1 Benign neoplasm of left ovary (principal); I44.1 Atrioventricular block, second degree; F17.290 Nicotine dependence, other tobacco product, uncomplicated
CPT/HCPCS: 58662; 36415; 85610; 85730; 86850; 86900; 86901; 88305; 93005; A9270; J0330; J1100; J1170; J1885; J2250; J2405; J2704; J3010; J7030; J7120

== ENCOUNTER 2023-08-27 10:03 | Observation (INO) | payer OTHER, SELFPAY ==
[2023-08-27] VITALS (13 sets, daily range): BP systolic 102–134; BP diastolic 50–75; PULSE 71–107; RESP 13–21; TEMP 36.3–37.1; O2SAT 97–100
--- NOTE | ~2023-08-27 | US_ITS ---
EXAMINATION: US OB <=14 wk fetus w TV INDICATION: 6 weeks, bleeding, cramping TECHNIQUE: Sonography of the pelvis was performed by transabdominal and transvaginal techniques. COMPARISON: None. RESULT: Uterus: 7.3 x 5.5 x 5.1 cm. Retroflexed. Likely septate uterus. Homogenous myometrium. Endometrial t hickness 13 mm Intrauterine gestational sac: Not seen. Embryo: Possible pole in the right fallopian tube. [place] rump length: 0.49 cm, corresponding gestational age 6 weeks, 1 days. Gestational heart rate: absent . Subgestational hematoma: Absent . Right ovary: 5.4 x 3.9 x 2.5 cm. Vascular flow is present. The right fallopian tube is enlarged me asuring 2.0 cm and hyperemic with moderate right adnexal free fluid. Left ovary: 3.4 x 1.3 x 3.0 cm. Vascular flow is present. No adnexal mass. Pelvis free fluid: Bilateral adnexal fluid is present, moderate on the right and mild on the left. IMPRESSION: No visible intrauterine gestational sac. Enlarged hyperemic right fallopian tube containing a hyperechoic focus that has the appearance of a f etal pole, correspond to 6 weeks 1 day gestational age, but without a definitive tubal ring sign or r ing of fire sign. Fallopian ectopic and salpingitis with debris should be considered. Enlarged right ovary with a volume of 27.3 mL, without a discrete mass, ovarian torsion should be inc luded in the differential. Moderate right adnexal fluid. Recommend gynecology consultation, serial beta-hCG testing, and close sonographic follow up as clinic ally warranted. Reviewed, dictated and finalized at location [facility] IMPRESSION: No visible intrauterine gestational sac. Enlarged hyperemic right fallopian tube containing a hyperechoic focus that has the appearance of a pole, correspond to 6 weeks 1 day gestational age, b ut without a definitive tubal ring sign or ring of fire sign. Fallopian ectopic and salpingitis with debris should be considered. Enlarged right ovary with a volume of 27.3 mL, without a discrete mass, ovarian torsion should be included in the differential. Moderate right adnexal fluid. Recommend gynecology consultation, serial beta-hCG testing, and close sonograph ic follow up as clinically warranted.
--- NOTE | 2023-08-27 13:14 | ED.PREGNANCY ---
HPI - General Chief complaint: Vaginal Bleeding <PARVEZ Recinos Last Filed: 08/27/23 13:24> Stated complaint: VAG BLEED,ABD PAIN,6WKS PREG <PARVEZ Recinos Last Filed: 08/27/23 13:24> Time Seen by Provider: 08/27/23 16:43 <PARVEZ Recinos Last Filed: 08/27/23 13:24> Source: patient <PARVEZ Recinos Last Filed: 08/27/23 13:24> Mode of arrival: ambulatory <PARVEZ Recinos Last Filed: 08/27/23 13:24> Limitations: no limitations <PARVEZ Recinos Last Filed: 08/27/23 13:24> History of Present Illness HPI Narrative: Patient is a 33 y/o female who presents to the ED with c/o vaginal bleeding. Patient reports she is currently via positive test at home. She is 6 weeks gestation according to LNMP of 07/11. , hx of 2 previous miscarriages. Currently seeing Dr. Kathya Mathis. She states she developed vaginal bleeding and lower abdominal cramping 2 days ago, which has persisted since then. Nausea and cramping pain in her lower back as well. She has noticed clots in her vaginal bleeding. She is concerned for another miscarriage. She has not taken anything for the pain today. Denies fevers. Patient had an US 2 weeks ago which was too early to see IUP. <PARVEZ Recinos Last Filed: 08/27/23 13:24> Patient is a 33 y/o female who presents to the ED with c/o vaginal bleeding. Patient reports she is currently via positive test at home. She is 6 weeks gestation according to LNMP of 07/11. , hx of 2 previous miscarriages. Currently seeing Dr. Kathya Mathis; has established with them for this ; next appointment 09/10/23. She states she developed vaginal bleeding and lower abdominal cramping 2 days ago, which has persisted since then. Nausea and cramping pain in her lower back as well. She has noticed clots in her vaginal bleeding. She is concerned for another miscarriage. She has not taken anything for the pain today. Denies fevers. Pain is 7 out of 10 in severity. She recently started taking an antibiotic for bacteriuria and is concerned that is what is causing her symptoms. She is having dysuria. No history of anemia. SHe has been taking Tylenol, vitamin, and preogesterone. Patient had an US 2 weeks ago which was too early to see IUP. <Juanis Chadwick MD - Last Filed: 08/30/23 10:35> Related Data Allergies/Adverse reactions: Allergies Allergy/AdvReac Type Severity Reaction Status Date / Time No Known Allergies Allergy Verified 03/22/23 07:42 <Adele Vallejo PA-C - Last Filed: 08/27/23 13:24> Review of Systems Review of Systems: CONSTITUTIONAL: Denies fever, chills, or sweats. GASTROINTESTINAL: See HPI. GENITOURINARY: See HPI. SKIN: Denies rash or itching. MUSCULOSKELETAL: See HPI. <Adele Vallejo PA-C - Last Filed: 08/27/23 13:24> All systems reviewed & are unremarkable except as noted in HPI and below <Adele Vallejo PA-C - Last Filed: 08/27/23 13:24> [facility] Past Medical History Medical History: Medical History (Updated 08/30/23 @ 10:35 by Juanis Chadwick MD) Abscess GERD (gastroesophageal reflux disease) Hepatitis C History of miscarriage x2 <Adele Vallejo PA-C - Last Filed: 08/27/23 13:24> Surgical History Surgical History: Surgical History H/O wisdom tooth extraction <Adele Vallejo PA-C - Last Filed: 08/27/23 13:24> Social History Social History: Social History Smoking packs per day: 1 Smoking cigarettes per day: 20.0 Years smoked: 15 Smoking pack-years: 15.00 Smoking status: Former smoker Tobacco type: cigarettes and e-cigarettes/vaping Smoking end date: 09/23/21 Additional smoking assessment comments: CURRENT
[2023-08-27] MEDS: ONDANSETRON HCL ODT 4 MG TABLET PO (13:34)
[2023-08-27] MEDS: ACETAMINOPHEN 500 MG TABLET 1000 MG PO (13:34)
[2023-08-27 13:49] LABS: Basophils Percent Auto 0.3 % (0.2-1.2); Eosinophils Absolute Auto 0.1 K/mm3 (0-0.3); Eosinophils Percent Auto 1.5 % (0-4.4); Hematocrit 40.3 % (37.0-47.0); Hemoglobin 14.1 g/dL (12.0-15.0); Immature Granulocyte Absolute 0.03 K/mm3 (0.00-0.031); Immature Granulocyte Percent A 0.3 % (0-0.5); Lymphocytes Absolute Auto 1.82 K/mm3 (0.9-3.2); Lymphocytes Percent Auto 19.8 % (18.3-44.2); Mean Corpuscular Hemoglobin 29.7 pg (26-34); Mean Corpuscular Volume 84.8 fl (80-100); Mean Platelet Volume 9.6 fl (7.4-10.4); Monocytes Absolute Auto 0.7 K/mm3 (0.1-0.6); Monocytes Percent Auto 7.2 % (2.6-8.5); Neutrophils Absolute Auto 6.5 K/mm3 (1.3-6.7); Neutrophils Percent Auto 70.9 % (45.5-73.1); Platelet Count Result 293 k/mm3 (150-375); Red Blood Count 4.75 M/mm3 (4.2-5.4); Red Cell Distribution Width 11.5 % (11.5-14.5); White Blood Count 9.2 K/mm3 (4.5-10.0)
[2023-08-27 14:00] LABS: Alanine Aminotransferase 70 U/L (6-35); Albumin Level 4.6 g/dL (3.5-5.1); Alkaline Phosphatase 79 U/L (38-126); Anion Gap 11 mmol/L (8-16); Aspartate Amino Transferase 50 U/L (14-36); Bilirubin,Total 0.8 mg/dL (0.2-1.3); Blood Urea Nitrogen 9 mg/dL (7-17); Calcium 9.3 mg/dL (8.4-10.2); Carbon Dioxide 24 mmol/L (22-30); Chloride 102 mmol/L (98-107); Estimated CRCL calculation 104 ml/min; Estimated Glomerular Filt Rate > 60; Glucose 87 mg/dL (65-110); Potassium 3.9 mmol/L (3.4-5.0); Sodium 137 mmol/L (137-145)
[2023-08-27 14:03] LABS: INR 0.9
[2023-08-27 14:04] LABS: Partial Thromboplastin Time 29.1 SECONDS (22.3-36.8)
[2023-08-27 14:27] LABS: Bacteria Urine None Seen /hpf; Non Pathogenic Casts 0-2; RBC Urine >100 /hpf (0-2); Squamous Epithelial Cell Urine None seen /hpf (Few)
[2023-08-27 14:32] LABS: Appearance Urine Cloudy (Clear); Bilirubin Urine Negative (Negative); Blood Urine 3+ (Negative); Color Urine Red (Yellow); Glucose Urine UA Negative (Negative); Ketones Urine Negative (Negative); Leukocyte Esterase Ur 1+ LEU/UL (Negative); Nitrate Urine Negative (Negative); Protein Urine 1+ mg/dL (Negative); Urobilinogen Urine 0.2 mg/dL (<2.0); pH Urine 6.5 (5.0-9.0)
[2023-08-27 14:42] LABS: Add Urine Microscopic? YES
--- NOTE | 2023-08-27 18:27 | PM.IMHP ---
H&P: HPI History of Present Illness Date/Time: 08/27/23 18:27 Chief Complaint: Abdominal pain with positive test and no intrauterine Narrative: 33-year-old female admitted through the ER complaining of right-sided abdominal pain. Ultrasound reveals what appears to be right-sided ectopic with possible torsion. Free fluid is seen as well. She agrees to undergo laparoscopic right salpingostomy with possible right salpingectomy possible right salpingo-oophorectomy. Risks and benefits reviewed in great detail [facility] Past Medical History Medical History Abscess GERD (gastroesophageal reflux disease) Hepatitis C Surgical History Surgical History H/O wisdom tooth extraction Social History Social History Smoking packs per day: 1 Smoking cigarettes per day: 20.0 Years smoked: 15 Smoking pack-years: 15.00 Smoking status: Former smoker Tobacco type: cigarettes and e-cigarettes/vaping Smoking end date: 09/23/21 Additional smoking assessment comments: CURRENTLY VAPS Alcohol intake: never Substance use: former Substance use type: opiates Last use: 2019 Living arrangements: with family Gender identity (if verbalized by the patient): Female Spiritual care concerns: No Meds Home Medications and Allergies Home Medications Medication Instructions Recorded Confirmed Type hydrocodone 5 mg-acetaminophen 325 1 tablet PO Q4H PRN pain #20 tabs 03/22/23 Rx mg tablet Allergies Allergy/AdvReac Type Severity Reaction Status Date / Time No Known Allergies Allergy Verified 03/22/23 07:42 Vital Signs Vital Signs - 24 hr 08/27/23 10:24 08/27/23 13:12 08/27/23 17:51 Temperature 97.4 F L Pulse Rate 107 H 95 85 Respiratory Rate 13 17 18 Blood Pressure 128/69 134/75 117/61 Pulse Oximetry 100 100 100 Oxygen Delivery Room Air Exam Const: General: cooperative and overweight Orientation/consciousness: oriented to person, oriented to place and oriented to time HENMT: Head: normal to inspection Resp: Effort & Inspection: normal respiratory effort Cardio: Rate: regular rate Rhythm: regular rhythm Heart sounds: S1 normal heart sound present and S2 normal heart sound present GI: Inspection: normal to inspection (Abdomen tender) : Speculum Exam - Vagina: normal appearance of the vagina and vaginal bleeding Speculum Exam - Cervix: normal appearance of the cervix Bimanual exam- vagina & uterus: enlarged Bimanual Exam- Adnexa, other: tender (Right greater than left) bilaterally H&P: Results Labs Labs: Short CBC 08/27/23 Range/Units 13:40 WBC 9.2 (4.5-10.0) K/mm3 Hgb 14.1 (12.0-15.0) g/dL Hct 40.3 (37.0-47.0) % Plt Count 293 (150-375) k/mm3 BMP 08/27/23 13:40 Sodium 137 Potassium 3.9 Chloride 102 Carbon Dioxide 24 BUN 9 Creatinine 0.70 Glucose 87 Calcium 9.3 Liver Function 08/27/23 Range/Units 13:40 Total Bilirubin 0.8 (0.2-1.3) mg/dL AST 50 H (14-36) U/L ALT 70 H (6-35) U/L Alkaline Phosphatase 79 (38-126) U/L Albumin 4.6 (3.5-5.1) g/dL Urine 08/27/23 Range/Units 13:45 Urine Color Red H (Yellow) Urine Appearance Cloudy H (Clear) Urine pH 6.5 (5.0-9.0) Ur Specific [place] 1.010 (1.001-1.035) Urine Protein 1+ H (Negative) mg/dL Urine Glucose (UA) Negative (Negative) mg/dL Assessment and Plan Assessment and plan (1) Ectopic , tubal: Code(s): O00.109 - Unspecified tubal without intrauterine Status: Acute Plan Laparoscopic right salpingostomy with possible salpingectomy or possible salpingo-oophorectomy
--- NOTE | 2023-08-27 18:40 | WPDHPUPDATE1 ---
History and Physical Update Update Date/Time: 08/27/23 18:40 History and Physical has been reviewed, including an updated exam of the patient. There are NO changes in the patient's condition. Risks, benefits, and alternatives have been discussed and questions answered. Patient agrees to proceed with procedure.
--- NOTE | 2023-08-27 18:45 | WPDANESEPP ---
Anes - Eval Pre Procedure Procedure: Operation Date: 08/27/23 19:15 Proposed Procedures p Laparoscopic Right Salpingectomy - Geovani Mathis MD Date/Time: 08/27/23 18:45 Pre Op Diagnosis: VAG BLEED,ABD PAIN,6WKS PREG Patient Data Age: 33 Gender: F Height: 1.63 m Weight: 83.9 kg Last Vital Signs Temp 36.3 C L 08/27/23 10:24 Pulse 85 08/27/23 17:51 Resp 18 08/27/23 17:51 BP 117/61 08/27/23 17:51 Pulse Ox 100 08/27/23 17:51 O2 Del Method Room Air 08/27/23 10:24 Allergies Allergy/AdvReac Type Severity Reaction Status Date / Time No Known Allergies Allergy Verified 03/22/23 07:42 Home Medications Medication Instructions Recorded Confirmed Type hydrocodone 5 mg-acetaminophen 325 1 tablet PO Q4H PRN pain #20 tabs 03/22/23 Rx mg tablet hydrocodone 5 mg-acetaminophen 325 1 tablet PO Q4H PRN pain #20 tabs 08/27/23 Rx mg tablet Laboratory Tests 08/27/23 08/27/23 13:40 13:45 WBC 9.2 K/mm3 (4.5-10.0) RBC 4.75 M/mm3 (4.2-5.4) Hgb 14.1 g/dL (12.0-15.0) Hct 40.3 % (37.0-47.0) MCV 84.8 fl (80-100) MCH 29.7 pg (26-34) MCHC 35.0 g/dl (32-36) RDW 11.5 % (11.5-14.5) Plt Count 293 k/mm3 (150-375) MPV 9.6 fl (7.4-10.4) Immature Gran % (Auto) 0.3 % (0-0.5) Neut % (Auto) 70.9 % (45.5-73.1) Lymph % (Auto) 19.8 % (18.3-44.2) [place] % (Auto) 7.2 % (2.6-8.5) Eos % (Auto) 1.5 % (0-4.4) Baso % (Auto) 0.3 % (0.2-1.2) Lymph # (Auto) 1.82 K/mm3 (0.9-3.2) [place] # (Auto) 0.7 H K/mm3 (0.1-0.6) Eos # (Auto) 0.1 K/mm3 (0-0.3) Baso # (Auto) 0.0 K/mm3 (0.0-0.1) Abs Immat Gran (auto) 0.03 K/mm3 (0.00-0.031) Absolute Neuts (auto) 6.5 K/mm3 (1.3-6.7) Absolute Nucleated RBC 0.0 K/mm3 (0.0-0.012) Nucleated RBC % 0.0 % (0.0-0.2) PT 13.0 Seconds (11.1-14.7) INR 0.9 APTT 29.1 SECONDS (22.3-36.8) Sodium 137 mmol/L (137-145) Potassium 3.9 mmol/L (3.4-5.0) Chloride 102 mmol/L (98-107) Carbon Dioxide 24 mmol/L (22-30) Anion Gap 11 mmol/L (8-16) BUN 9 mg/dL (7-17) Creatinine 0.70 mg/dL (0.7-1.0) Estim Creat Clear Calc 104 ml/min Estimated GFR > 60 (59 - ) Glucose 87 mg/dL (65-110) Calcium 9.3 mg/dL (8.4-10.2) Total Bilirubin 0.8 mg/dL (0.2-1.3) AST 50 H U/L (14-36) ALT 70 H U/L (6-35) Alkaline Phosphatase 79 U/L (38-126) Total Protein 8.0 g/dL (6.3-8.2) Albumin 4.6 g/dL (3.5-5.1) Beta HCG, Quant 6832.00 mIU/ML Urine Color Red H (Yellow) Urine Appearance Cloudy H (Clear) Urine pH 6.5 (5.0-9.0) Ur Specific [place] 1.010 (1.001-1.035) Urine Protein 1+ H mg/dL (Negative) Urine Glucose (UA) Negative mg/dL (Negative) Urine Ketones Negative mg/dL (Negative) Ur Blood (Man) 3+ H (Negative) Urine Nitrate Negative (Negative) Urine Bilirubin Negative (Negative) Urine Urobilinogen 0.2 mg/dL (<2.0) Leukocyte Esterase Rfl 1+ H [place]/UL (Negative) Urine RBC >100 H /hpf (0-2) Urine WBC 11-20 H /hpf Ur Squamous Epith Cells None seen /hpf (Few) Urine Bacteria None seen /hpf Urine Casts 0-2 Blood Type O Positive Antibody Screen Negative Screen Not Reportable Baby's Blood Type Not Reportable Baby's JOAQUIN Not Reportable Doses of RhIg Required 0 Patient hx anesthesia problems: none Family hx anesthesia problems: none Results Review: All pre-operative results and documents have been reviewed as part of the pre-operative evaluation. [facility] Past Medical History Medical History (Reviewed 08/27/23 @ 18:27 by Geovani Escobedo
--- NOTE | 2023-08-27 18:53 | P.PNAN_ITS ---
Anes - Eval Final PreProcedure Day of Procedure 08/27/23 18:53 Patient weight: obese Heart: regular rate and rhythm Lungs: clear to auscultation Airway: Mallampati scale class II Neurological: alert and oriented Last oral intake: >/= 8 hours ASA classification: III Emergent: yes Anesthetic plan: proceed Anesthesia type and monitoring: general ETT and standard monitoring Results Review: All pre-operative results and documents have been reviewed as part of the pre- operative evaluation. Informed Consent: The patient's anesthetic plan and its attendant risks and benefits were discussed with the patient/family/POA. Questions were solicited and answers provided to the satisfaction of the patient/family/POA.
--- NOTE | 2023-08-27 19:39 | P.OP_ITS ---
Procedure Note - Detailed Date of Procedure 08/27/23 Pre-op Diagnosis VAG BLEED,ABD PAIN,6WKS PREG Post-op Diagnosis Other (Right tubal ectopic ) Procedure Performed laparoscopic partial right salpingectomy Surgeon Geovani Mathis MD Anesthesia General Indications this is a 33-year-old female with a right-sided ectopic seen through the ER Findings [id number] of clot the abdomen. Bleeding at the end of the right fallopian tube with a large ectopic present. There is a small amount of scar tissue on the left which was easily broken down from the left tube to the lateral sidewall with a normal-appearing ovary as was the right ovary normal. Description of Procedure Patient was prepped draped in the normal sterile fashion placed in the dorsal lithotomy position. Under excellent general trach anesthesia weighted speculum placed posterior fornix vagina. Anterior lip of the cervix grasped with single- tooth tenaculum. Walker's cannula inserted attached to the single-tooth to be used later for uterine manipulation. After emptying the bladder of clear urine the weighted speculum was removed and gloves were changed. An infraumbilical incision made the Veress needle passed in the abdomen. Abdomen filled with CO2 gas to 15 mercury. The 5mm trocar advanced with the optic scope and no injury seen. Patient placed in Trendelenburg and a suprapubic incision made. The 5mm trocar advanced under direct visualization assuring no injury. The above findings were noted in the clots were suctioned and removed. There was a small amount of scarring from the left tube to lateral sidewall which was gently removed and irrigated and appeared within normal limits. The right fallopian tube was bleeding actively and the tube appeared unmanageable. Decision was made for salpingectomy. A right lower quadrant incision made the 10mm trocar advanced under direct visualization. The right fallopian tube was then grasped with a grasping instrument in serially cau terized away from the ovarian structure 2 approximately 2cm from the uterus. This was placed in an Endo-Catch and irrigation undertaken to clear. Hemostasis was assured. The Endo-Catch was removed through the right lower quadrant in the photo documentation undertaken. The lower sites removed. The gas removed from the abdomen. The upper sites removed the incisions closed with 4 Monocryl glue. Instruments removed from the vagina and the patient was awakened. All sponge, needle, instrument counts were correct. There were no immediate complications Estimated Blood Loss 25 Drains No Packing No Pathology Yes Complications No immediate complications Condition Stable Disposition PACU
[2023-08-27] MEDS: LACTATED RINGERS 1,000 ML 30 ML IV CONT ×2 (19:49→20:47)
[2023-08-27] MEDS: fentaNYL CITRATE INJ (*CRX) 100 MCG/2 ML VIAL 25 MCG IV PUSH ×8 (20:08→20:31)
[2023-08-27] MEDS: ONDANSETRON INJ 4 MG/2 ML VIAL IV PUSH (20:16)
[2023-08-27] MEDS: HYDROmorphone HCL INJ (*CRX) 1 MG/ML SYR IV PUSH ×3 (20:34→20:55)
[2023-08-27] MEDS: PROMETHAZINE HCL 25 MG/ML AMPUL 12.5 MG IV PUSH (20:35)
[2023-08-27] MEDS: KETOROLAC 30 MG/ML VIAL (*BKC) IV PUSH (21:21)
--- NOTE | 2023-08-27 22:07 | PC.NURSE ---
Patient transferred to post room # 289 via ( Stretcher ). Support person present. Oriented to unit, room, information board, rooming in, admission packet and security measures. Patient verbalizes understanding.
[2023-08-27] MEDS: oxyCODONE/ACETAMINOPHEN (*CRX) 5-325 MG TABLET PO (22:52)
[2023-08-28] MEDS: oxyCODONE/ACETAMINOPHEN (*CRX) 5-325 MG TABLET PO ×2 (04:54→08:58)
[2023-08-28 04:56] VITALS: BP 89/45; PULSE 109; RESP 20; TEMP 36.9; O2SAT 96
--- NOTE | 2023-08-28 06:25 | PM.GYNPNOP ---
[employer] - A/P Assessment and plan (1) Ectopic , tubal: Code(s): O00.109 - Unspecified tubal without intrauterine Status: Acute Plan home Postoperative Procedures: Procedures Operation Date: 08/27/23 19:15 Actual Procedure Side Surgeon p Laparoscopic Right Partial Salpingectomy Right Geovani Mathis MD Time Spent With Patient Time: Total time spent is greater than 50% in coordination of care (as documented) at patient's floor/unit and/or counseling patient: Time with patient: less than 15 minutes [employer]- PN:Subj Post-Op Subjective Date/time seen: 08/28/23 06:25 Subjective: patient reports feeling better, patient desires discharge and pain is well controlled Exam Const: General: cooperative, healthy appearing and comfortable Nutritional Appearance: average body habitus Orientation/consciousness: oriented to person, oriented to place and oriented to time HENMT: Head: normal to inspection Resp: Effort & Inspection: normal respiratory effort Cardio: Rate: regular rate Rhythm: regular rhythm Heart sounds: S1 normal heart sound present and S2 normal heart sound present GI: Inspection: normal to inspection and incision (cdi) [employer] - PN: Obj Data Vital Signs Vital Signs: Vital Signs - 24 hr 08/27/23 10:24 08/27/23 13:12 08/27/23 17:51 Temperature 97.4 F L Pulse Rate 107 H 95 85 Respiratory Rate 13 17 18 Blood Pressure 128/69 134/75 117/61 Pulse Oximetry 100 100 100 Oxygen Delivery Room Air Oxygen Flow Rate 08/27/23 19:49 08/27/23 20:05 08/27/23 20:20 Temperature 97.5 F L Pulse Rate 78 74 71 Respiratory Rate 19 21 H 21 H Blood Pressure 121/50 L 113/71 114/72 Pulse Oximetry 100 100 99 Oxygen Delivery Simple Face Mask Simple Face Mask Room Air Oxygen Flow Rate 8 8 08/27/23 20:35 08/27/23 20:50 08/27/23 21:05 Temperature Pulse Rate 81 79 83 Respiratory Rate 17 20 17 Blood Pressure 110/58 L 109/70 112/75 Pulse Oximetry 98 97 99 Oxygen Delivery Room Air Room Air Room Air Oxygen Flow Rate 08/27/23 21:20 08/27/23 21:35 08/27/23 21:50 Temperature Pulse Rate 82 79 78 Respiratory Rate 16 18 20 Blood Pressure 102/68 107/62 106/70 Pulse Oximetry 100 100 100 Oxygen Delivery Room Air Room Air Room Air Oxygen Flow Rate 08/27/23 22:18 08/28/23 04:56 Temperature 98.7 F 98.5 F Pulse Rate 80 109 H Respiratory Rate 18 20 Blood Pressure 103/65 89/45 L Pulse Oximetry 97 96 Oxygen Delivery Oxygen Flow Rate Intake/Output Intake/Output: Intake & Output 08/25/23 08/26/23 08/27/23 08/28/23 23:59 23:59 23:59 23:59 Intake Total 1000 Output Total 100 Balance 900 Meds/Results Medications: Active Medications Generic Name Dose Route Start Last Admin Trade Name Freq PRN Reason Stop Dose Admin Dextrose/Lactated Ringer's 1,000 mls @ 125 mls/hr 08/27/23 22:00 Dextrose 5%/Lactated Ringers IV CONT .Q8H JUSTICE Ondansetron HCl 4 mg 08/27/23 22:00 Ondansetron Inj 4 Mg/2 Ml Vial IV PUSH Q4H PRN Nausea And Vomiting Oxycodone/Acetaminophen 1 - 2 tablet 08/27/23 22:00 08/28/23 04:54 Oxycodone/Acetaminophen (*Crx) 5-325 Mg Tablet PO 2 tablet Q4H PRN Administration Pain Rated 7-10 Radiology Results: ITS Impressions Obstetrics Ultrasound 08/27/23 17:04 IMPRESSION: No visible intrauterine gestational sac. Enlarged hyperemic right fallopian tube containing a hyperechoic focus that has the appearance of a pole, correspond to 6 weeks 1 day gestational age, but without a definitive tubal ring sign or ring of fire sign. Fallopian ectopic and salpingitis with debris should be considered. Enlarged right ovary with a volume of 27.3 mL, without a discrete mass, ovarian torsion should be included in the differential. Moderate right adnexal fluid. Recommend gynecology consultation, serial beta-hCG testing, and close sonographic follow up as clinically wa
--- NOTE | 2023-08-28 06:50 | PM.DS ---
DS: Admitting Diagnosis Discharge Date 08/28/2023 Admitting Diagnosis right tubal ectopic DS: Discharge Diagnosis Discharge Diagnosis (1) Ectopic , tubal: Code(s): O00.109 - Unspecified tubal without intrauterine Status: Acute DS: Summary Hospital Course Reason for hospitalization: patient was admitted through the emergency department with complaints of right lower quadrant pain. Hospital Course: Patient underwent laparoscopic right salpingectomy on 08/27/2023 but the bleeding ectopic. She was watched overnight. Her hospital course was unremarkable. She remained afebrile. She was up, eating rate diet, ambulating, voiding without difficulty, generally without complaints. Time Spent with Patient Time attestation: Total time spent providing and/or coordinating discharge services: Exam Const: General: cooperative, healthy appearing and comfortable Nutritional Appearance: average body habitus Orientation/consciousness: oriented to person, oriented to place and oriented to time HENMT: Head: normal to inspection Resp: Effort & Inspection: normal respiratory effort Cardio: Rate: regular rate Rhythm: regular rhythm Heart sounds: S1 normal heart sound present and S2 normal heart sound present GI: Inspection: normal to inspection and incision ( Wounds are clean drain intact) DS: Data Data Completed and Pending Pending studies at discharge: Pending at discharge 08/27/23 19:31 Surgical [PTH] Routine Labs on day of discharge: Labs from last 24 hours 08/27/23 08/27/23 13:45 13:40 WBC 9.2 RBC 4.75 Hgb 14.1 Hct 40.3 MCV 84.8 MCH 29.7 MCHC 35.0 RDW 11.5 Plt Count 293 MPV 9.6 Immature Gran % (Auto) 0.3 Neut % (Auto) 70.9 Lymph % (Auto) 19.8 [place] % (Auto) 7.2 Eos % (Auto) 1.5 Baso % (Auto) 0.3 Lymph # (Auto) 1.82 [place] # (Auto) 0.7 H Eos # (Auto) 0.1 Baso # (Auto) 0.0 Abs Immat Gran (auto) 0.03 Absolute Neuts (auto) 6.5 Absolute Nucleated RBC 0.0 Nucleated RBC % 0.0 PT 13.0 INR 0.9 APTT 29.1 Sodium 137 Potassium 3.9 Chloride 102 Carbon Dioxide 24 Anion Gap 11 BUN 9 Creatinine 0.70 Estim Creat Clear Calc 104 Estimated GFR > 60 Glucose 87 Calcium 9.3 Total Bilirubin 0.8 AST 50 H ALT 70 H Alkaline Phosphatase 79 Total Protein 8.0 Albumin 4.6 Beta HCG, Quant 6832.00 Urine Color Red H Urine Appearance Cloudy H Urine pH 6.5 Ur Specific [place] 1.010 Urine Protein 1+ H Urine Glucose (UA) Negative Urine Ketones Negative Ur Blood (Man) 3+ H Urine Nitrate Negative Urine Bilirubin Negative Urine Urobilinogen 0.2 Leukocyte Esterase Rfl 1+ H Urine RBC >100 H Urine WBC 11-20 H Ur Squamous Epith Cells None seen Urine Bacteria None seen Urine Casts 0-2 Blood Type O Positive Antibody Screen Negative Screen Not Reportable Baby's Blood Type Not Reportable Baby's JOAQUIN Not Reportable Doses of RhIg Required 0 Discharge Plan Discharge Attending physician on discharge: Geovani Grace Discharging Clinician: Geovani Grace Patient Disposition: Home, Self-Care Activity: may shower and pelvic rest Diet: heart healthy Wound Care Instructions: follow printed instructions Stand Alone Forms: General Discharge Instructions Follow-up/Referrals: Geovani Grace MD [Physician] - PHYSICIAN,STAMP MACHINE SERVICER [Non-Staff] - Discharge Medications: New hydrocodone-acetaminophen 5-325 mg tablet 1 tablet PO Q4H PRN (Reason: pain) Qty: 20 0RF Continued hydrocodone-acetaminophen 5-325 mg tablet 1 tablet PO Q4H PRN (Reason: pain) Qty: 20 0RF Date of admission: 08/27/23 22:00 Primary Care Provider: UNKNOWN,DOCTOR Admitting Provider: Geovani Grace Attending physician on admission: Geovani Grace Condition: Stable
[2023-08-28 06:59] VITALS: BP 112/52; PULSE 80; RESP 16; TEMP 37.1; O2SAT 98
[2023-08-28] MEDS: DOCUSATE SODIUM 100 MG CAPSULE PO (07:02)
--- NOTE | 2023-08-28 08:59 | P.PNAN_ITS ---
Anes - Prog Note Post-Op Date/Time: 08/28/23 08:59 Cardiovascular status: normal Respiratory status: normal Airway patency: baseline Mental status: baseline Post-Op hydration status: normal Vital Signs: Last Vital Signs Temp 98.7 F 08/28/23 06:59 Pulse 80 08/28/23 06:59 Resp 16 08/28/23 06:59 BP 112/52 L 08/28/23 06:59 Pulse Ox 98 08/28/23 06:59 O2 Del Method Room Air 08/28/23 06:59 O2 Flow Rate 8 08/27/23 20:05 Pain Score (VAS): 10 I/O: Intake & Output 08/27/23 08/28/23 08/28/23 23:59 07:59 15:59 Intake Total 1000 Output Total 100 Balance 900 Laboratory Tests 08/27/23 13:40 08/27/23 13:40 08/27/23 08/27/23 13:40 13:45 WBC 9.2 RBC 4.75 Hgb 14.1 Hct 40.3 MCV 84.8 MCH 29.7 MCHC 35.0 RDW 11.5 Plt Count 293 MPV 9.6 Immature Gran % (Auto) 0.3 Neut % (Auto) 70.9 Lymph % (Auto) 19.8 [place] % (Auto) 7.2 Eos % (Auto) 1.5 Baso % (Auto) 0.3 Lymph # (Auto) 1.82 [place] # (Auto) 0.7 H Eos # (Auto) 0.1 Baso # (Auto) 0.0 Abs Immat Gran (auto) 0.03 Absolute Neuts (auto) 6.5 Absolute Nucleated RBC 0.0 Nucleated RBC % 0.0 PT 13.0 INR 0.9 APTT 29.1 Sodium 137 Potassium 3.9 Chloride 102 Carbon Dioxide 24 Anion Gap 11 BUN 9 Creatinine 0.70 Estim Creat Clear Calc 104 Estimated GFR > 60 Glucose 87 Calcium 9.3 Total Bilirubin 0.8 AST 50 H ALT 70 H Alkaline Phosphatase 79 Total Protein 8.0 Albumin 4.6 Beta HCG, Quant 6832.00 Urine Color Red H Urine Appearance Cloudy H Urine pH 6.5 Ur Specific [place] 1.010 Urine Protein 1+ H Urine Glucose (UA) Negative Urine Ketones Negative Ur Blood (Man) 3+ H Urine Nitrate Negative Urine Bilirubin Negative Urine Urobilinogen 0.2 Leukocyte Esterase Rfl 1+ H Urine RBC >100 H Urine WBC 11-20 H Ur Squamous Epith Cells None seen Urine Bacteria None seen Urine Casts 0-2 Blood Type O Positive Antibody Screen Negative Screen Not Reportable Baby's Blood Type Not Reportable Baby's JOAQUIN Not Reportable Doses of RhIg Required 0 Post-procedural complaints: none Patient Feedback: Patient satisfied with anesthetic care.
== END 2023-08-28 09:06 | disposition home or self-care (01) ==
LOC: ANHED 16:43 → ANHSURGERY 18:09 → ANHOB2 22:02
PROVIDERS: Physician Assistant; Admitting Provider Obstetrics & Gynecology; Emergency Provider Student in an Organized Health Care Education/Training Program; Visit Provider Obstetrics & Gynecology
PROC: (CPT 49320; principal; 2023-08-27 19:15)
DX: O00.101 Right tubal pregnancy without intrauterine pregnancy (principal); O08.1 Delayed or excessive hemorrhage following ectopic and molar pregnancy; Z3A.01 Less than 8 weeks gestation of pregnancy; O26.20 Pregnancy care for patient with recurrent pregnancy loss, unspecified trimester; Z87.891 Personal history of nicotine dependence; Z79.891 Long term (current) use of opiate analgesic
CPT/HCPCS: 59151; 36415; 76801; 76817; 80053; 81001; 84702; 85025; 85461; 85610; 85730; 86850; 86900; 86901; 87086; 88305; 96361; 96374; 96375; 99285; A9270; G0378; G0379; J0330; J1100; J1170; J1200; J1885; J2250; J2405; J2550; J2704; J3010; J7120